=== PATIENT | male | born 1975 | race Caucasian/White ===

== ENCOUNTER → 2019-06-07 | Outpatient (CLI) | payer OTHER ==
--- NOTE | 2019-06-07 14:09 | Diagnostic Imaging Report ---
TECHNIQUE: Magnetic resonance imaging of the RIGHT KNEE was performed WITHOUT injected contrast. HISTORY: Right knee pain COMPARISON: None available. FINDINGS: LIGAMENTS AND TENDONS: ACL: Intact PCL: Intact Collateral ligaments: Intact Iliotibial band: Unremarkable Popliteal tendon: Intact Extensor mechanism: Intact JOINT: Menisci: Medial: Intact Lateral: Degenerative signal with probable horizontal tear not extending to the articular surface. Articular Cartilage: Medial Compartment: Cartilage flap of the weightbearing medial femoral condyle coronal image 16 Lateral Compartment: No focal defect. Patellofemoral Compartment: Partial-thickness cartilage loss Joint Fluid: Small joint effusion. BONE: No focal or infiltrative bone marrow replacing abnormality. No acute fracture. SOFT TISSUES: Edema deep to the pes anserine. IMPRESSION: Lateral meniscus degenerative signal with horizontal tearing of the body not extending to the articular surface Probable pes anserine bursitis Cartilage flap involving the weightbearing medial femoral condyle Signed by: Dr. Servando Galvan M.D. on 06/07/2019 2:07 PM
== END ==
LOC: MRI 09:45
PROVIDERS: ATTEND Family Medicine
DX: S83.211D Bucket-handle tear of medial meniscus, current injury, right knee, subsequent encounter (principal)